=== PATIENT | female | born 1985 | race Caucasian/White ===

== ENCOUNTER 2018-01-20 12:44 | Emergency (ER) | payer SELFPAY ==
[~2018-01-20] VITALS: Ht 160 cm; Wt 44.2 kg
[2018-01-20 12:47] VITALS: TEMP 36.3; Ht 160 cm; Wt 44.2 kg
--- NOTE | 2018-01-20 13:12 | EMERGENCY ROOM VISIT NOTE ---
History First contact with patient: 12:50 Chief Complaint: ED VAG BLEEDING Stated Complaint: 8 WKS - CRAMPING & BLEEDING History of Present Illness The patient is a 32 year old female who presents to the Emergency Room with complaints of vaginal bleeding in early . Patient will be 8 weeks in 2 days. She is G1P 0. She started with light brown spotting 2 days ago. She noticed some heavy clots in the toilet this morning when she urinated. She is having fairly significant lower abdominal cramping. She denies any other symptoms such as fever, vomiting or flank pain. The patient has not yet seen her brand leader. She is supposed to see them early next week for an ultrasound. She called them today. They directed her to ER for further care Review of Systems 10 system review performed and negative unless noted in HPI or below Past Medical/Surgical History Anxiety Panic disorder Social History Smoking Status: Current Every Day Smoker Current/Historical Medications Scheduled Escitalopram Oxalate (Lexapro), 20 MG PO DAILY Multivit/Min/Iron/Fol Ac/Pren ( Vitamin), 1 TAB PO DAILY Scheduled PRN Clonazepam (Klonopin), 0.5 MG PO BID PRN for Anxiety Physical Exam Vital Signs Date Time Temp Pulse Resp B/P (MAP) Pulse Ox O2 Delivery O2 Flow Rate FiO2 01/20/18 16:36 78 18 98/100 99 Room Air 01/20/18 14:24 80 18 100/52 98 Room Air 01/20/18 12:47 36.3 92 18 122/82 99 Room Air Physical Exam VITALS: Vitals are noted on the nurse's note and reviewed by myself. Vital signs stable. GENERAL: 32-year-old female, anxious in appearance,, SKIN: The skin was without rashes, erythema, edema, or bruising. HEAD: Normocephalic atraumatic. NECK: Supple without nuchal rigidity. No lymphadenopathy. Cervical spine is nontender. No JVD. HEART: Regular rate and rhythm without murmurs gallops or rubs. LUNGS: Clear to auscultation bilaterally without wheezes, rales or rhonchi. No accessory muscle use. ABDOMEN: Positive bowel sounds x 4.Soft, nontender, without organomegaly. No guarding or rebound tenderness. MUSCULOSKELETAL: No muscle atrophy, erythema, or edema noted. Strength 5/5 throughout. NEURO: Patient was alert and oriented to person place and time. Normal sensation to touch. No focal neurological deficits. Medical Decision & Procedures ER Provider Diagnostic Interpretation: Pelvic ultrasound IMPRESSION: 1. Moderate endometrial thickening at 1.4 cm. 2. No evidence for an intrauterine gestational sac. 3. 1.5 cm left ovarian corpus luteum cyst. The above report was generated using voice recognition software. It may contain grammatical, syntax or spelling errors. Electronically signed by: Da Epps M.D. 01/20/2018 2:10 PM Dictated Date/Time: 01/20/2018 2:08 PM The status of this report is Signed. Draft = Not yet reviewed or approved by Radiologist. Signed = Reviewed and approved by Radiologist. Laboratory Results 01/20/18 13:18 Red Blood Count 3.48, Mean Corpuscular Volume 95.7, Mean Corpuscular Hemoglobin 33.9, Mean Corpuscular Hemoglobin Concent 35.4, Mean Platelet Volume 9.6, Neutrophils (%) (Auto) 66.6, Lymphocytes (%) (Auto) 24.5, Monocytes (%) (Auto) 7.1, Eosinophils (%) (Auto) 1.3, Basophils (%) (Auto) 0.4, Neutrophils # (Auto) 5.29, Lymphocytes # (Auto) 1.94, Monocytes # (Auto) 0.56, Eosinophils # (Auto) 0.10, Basophils # (Auto) 0.03 01/20/18 13:18 Test 01/20/18 13:18 01/20/18 13:21 White Blood Count 7.93 K/uL (4.8-10.8) Red Blood Count 3.48 M/uL (4.2-5.4) Hemoglobin 11.8 g/dL (12.0-16.0) Hematocrit 33.3 % (37-47) Mean Corpuscular Volume 95.7 fL (80-100) Mean Corpuscular Hemoglobin 33.9 pg (25-34) Mean Corpuscular Hemoglobin Concent 35.4 g/dl (32-36) Platelet Count 223 K/uL (130-400) Mean Platelet Volume 9.6 fL (7.4-10.4) Neutrophils (%) (Auto) 66.6 % Lymphocytes (%) (Auto) 24.5 % Monocytes (%) (Auto) 7.1 % Eosinophils (%) (Auto) 1.3 % Basophils (%) (Auto) 0.4 % Neutrophils # (Auto) 5.29 K/uL (1.4-6.5) Lymphocytes # (Auto) 1.94 K/uL (1.2-3.4) Monocytes # (Auto) 0.56 K/uL (0.11-0.59) Eosinophils # (Auto) 0.10 K/uL (0-0.5) Basophils # (Auto) 0.03 K/uL (0-0.2) RDW Standard Deviation 46.5 fL (36.4-46.3) RDW Coefficient of Variation 13.3 % (11.5-14.5) Immature Granulocyte % (Auto) 0.1 % Immature Granulocyte # (Auto) 0.01 K/uL (0.00-0.02) Anion Gap 6.0 mmol/L (3-11) Est Creatinine Clear Calc Drug Dose 88.3 ml/min Estimated GFR () 138.1 Estimated GFR (Non- 119.1 BUN/Creatinine Ratio 12.5 (10-20) Calcium Level 9.5 mg/dl (8.5-10.1) Total Bilirubin 0.4 mg/dl (0.2-1) Aspartate Amino Transf (AST/SGOT) 12 U/L (15-37) Alanine Aminotransferase (ALT/SGPT) 16 U/L (12-78) Alkaline Phosphatase 53 U/L (45-117) Total Protein 7.0 gm/dl (6.4-8.2) Albumin 3.8 gm/dl (3.4-5.0) Globulin 3.2 gm/dl (2.5-4.0) Albumin/Globulin Ratio 1.2 (0.9-2) Human Chorionic Gonadotropin, Quant 1424 mIU/mL Urine Color ORANGE Urine Appearance TURBID (CLEAR) Urine pH 7.0 (4.5-7.5) Urine Specific [place] 1.023 (1.000-1.030) Urine Protein 3+ (NEG) Urine Glucose (UA) NEG (NEG) Urine Ketones TRACE (NEG) Urine Occult Blood 3+ (NEG) Urine Nitrite NEG (NEG) Urine Bilirubin NEG (NEG) Urine Urobilinogen NEG (NEG) Urine Leukocyte Esterase SMALL (NEG) Urine WBC (Auto) 10-30 /hpf (0-5) Urine RBC (Auto) >30 /hpf (0-4) Urine Hyaline Casts (Auto) 5-10 /lpf (0-5) Urine Epithelial Cells (Auto) >30 /lpf (0-5) Urine Bacteria (Auto) 1+ (NEG) Urine Renal Epithelial Cells 5-10 /lpf (0-5) Urine Pathogenic Casts 0-3 GRANULAR CASTS /lpf (0) Medications Administered Medications (Trade) Dose Ordered Sig/Raimundo Route Start Time Stop Time Status Last Admin Dose Admin Ketorolac Tromethamine (Toradol Inj) 30 mg NOW STAT IV 01/20/18 15:27 01/20/18 15:28 DC 01/20/18 15:51 30 MG ED Course Patient was seen and examined Vital signs including blood pressure were reviewed medications list was verified with patient Labs were obtained, and a saline lock was established Imaging was performed and reviewed Findings were discussed with my supervising physician. I then reassess the patient. We discussed the results. She was tearful, but understanding. I spoke with Dr. Veras from [facility]. The patient was requesting pain medications. She was given 1 dose of Toradol 30 mg IV. Upon reassessment, she was more comfortable. The patient was given 1 dose of RhoGam I reviewed discharge instructions the patient. They voiced understanding and had no further questions. Medical Decision Differential diagnosis: Threatened miscarriage, incomplete , complete , subchorionic hemorrhage, ectopic This patient is a 32-year-old female, 8 weeks the presents with vaginal bleeding and cramping. On exam, her abdomen was benign. Patient's hCG level is 1400, which is low. An ultrasound was performed. No gestational intrauterine sac was noted. This was discussed at length with patient. Patient is also O--she was given RhoGam. Case was discussed with OB. She will follow-up with them on Tuesday as scheduled. The patient was given ectopic precautions. She will return with any worsening pain or severe bleeding This chart was completed in part utilizing [employer] Voice Recognition software. Attempts were made to minimize the grammatical errors, random word insertions, pronoun errors and incomplete sentences. Any formal questions or concerns about the content, text or information contained within the body of this dictation should be directly addressed to the provider for clarification. Consults Consulting Physician: Dr. Veras Impression Primary Impression: Vaginal bleeding affecting early Departure Information Dispostion Home / Self-Care Referrals No Doctor, Assigned (PCP) Aaron Veras M.D. Patient Instructions ED Miscarriage Poss, [facility] Additional Instructions You have been seen in the emergency department for vaginal bleeding during . An ultrasound was performed. There was no fetus seen in the uterus. Please do not use tampons. Nothing in the vagina. Use pads for vaginal bleeding. No sexual intercourse. Please keep your appointment with OB as scheduled. It is very important for you to have repeat blood work in 72 hours. You may take Tylenol 650 mg or ibuprofen 600 mg every 6 hours as needed for pain Please do not hesitate to return to the emergency department with any new, worsening or concerning symptoms; especially, worsening abdominal pain, fever, lightheadedness or heavy bleeding-greater than 2 pads per hour
[2018-01-20 13:29] LABS: BASO % 0.4 %; BASO ABS # 0.03 K/uL (0-0.2); EOS % 1.3 %; HEMATOCRIT 33.3 % (37-47); HEMOGLOBIN 11.8 g/dL (12.0-16.0); IG# 0.01 K/uL (0.00-0.02); LYMPH % 24.5 %; LYMPH ABS # 1.94 K/uL (1.2-3.4); MEAN CELL VOLUME 95.7 fL (80-100); MEAN CORPUSCULAR HEMOGLOBIN 33.9 pg (25-34); MEAN CORPUSCULAR HGB CONC 35.4 g/dl (32-36); MEAN PLATELET VOLUME 9.6 fL (7.4-10.4); MONO % 7.1 %; MONO ABS # 0.56 K/uL (0.11-0.59); NEUT % 66.6 %; NEUT ABS # 5.29 K/uL (1.4-6.5); PLATELET COUNT 223 K/uL (130-400); RED CELL DISTRIBUTION WIDTH CV 13.3 % (11.5-14.5); RED CELL DISTRIBUTION WIDTH SD 46.5 fL (36.4-46.3); WHITE BLOOD COUNT 7.93 K/uL (4.8-10.8)
[2018-01-20 13:46] LABS: ALBUMIN 3.8 gm/dl (3.4-5.0); CALCIUM 9.5 mg/dl (8.5-10.1); CREATININE 0.65 mg/dl (0.60-1.20); POTASSIUM 3.5 mmol/L (3.5-5.1)
--- NOTE | 2018-01-20 14:12 | DIAGNOSTIC IMAGING REPORT ---
<14 WKS SINGLE CLINICAL HISTORY: bleeding 8 weeks TECHNIQUE: Transabdominal as well as transvaginal ultrasound COMPARISON STUDY: None FINDINGS: Uterus is midline. Maximum linear dimension 7.8 cm. Moderately thickened endometrium at 1.4 cm. No evidence for an intrauterine gestational sac. Left ovary measures 3.1 cm at maximum. Demonstrate normal vascular flow. There is a 1.5 cm corpus luteum cyst. Right ovary measures 2.5 cm maximum. Vascular flow is confirmed. IMPRESSION: 1. Moderate endometrial thickening at 1.4 cm. 2. No evidence for an intrauterine gestational sac. 3. 1.5 cm left ovarian corpus luteum cyst. The above report was generated using voice recognition software. It may contain grammatical, syntax or spelling errors. Electronically signed by: Da Epps M.D. 01/20/2018 2:10 PM Dictated Date/Time: 01/20/2018 2:08 PM
[2018-01-20] MEDS ORDERED: PRENTAB26 PO (14:33)
[2018-01-20] MEDS ORDERED: ESCI1TAB10 PO (14:33)
[2018-01-20] MEDS ORDERED: CLON0.5T3 PO (14:33)
[2018-01-20] MEDS ORDERED: KETOROLAC TROMETHAMINE 30 MG/ML VIAL IV STA (15:27)
[2018-01-20 16:36] VITALS: BP 98/100; PULSE 78; O2SAT 99
== END 2018-01-20 16:36 | disposition home or self-care (01) ==
LOC: C.EDB 12:46 → C.EDC 16:36
DX: O20.9 Hemorrhage in early pregnancy, unspecified (principal); O99.341 Other mental disorders complicating pregnancy, first trimester; O99.331 Smoking (tobacco) complicating pregnancy, first trimester; Z3A.08 8 weeks gestation of pregnancy; F41.0 Panic disorder [episodic paroxysmal anxiety]; F17.200 Nicotine dependence, unspecified, uncomplicated

== ENCOUNTER → 2018-01-30 | Outpatient (CLI) | payer OTHER ==
[~2018-01-30] MED LIST: CLON0.5T3 PO; ESCI1TAB10 PO; PRENTAB26 PO
== END | disposition home or self-care (01) ==
LOC: C.LAB1850 11:42
PROVIDERS: ATTEND Obstetrics & Gynecology
DX: O03.9 Complete or unspecified spontaneous abortion without complication (principal)

== ENCOUNTER → 2018-01-30 | Outpatient (CLI) | payer OTHER | END | disposition home or self-care (01) | LOC: C.PAPS 14:40 | PROVIDERS: ATTEND Obstetrics & Gynecology | DX: Z12.4 Encounter for screening for malignant neoplasm of cervix (principal) ==

== ENCOUNTER 2021-07-04 02:48 | Inpatient (IN) ==
[2021-07-04] MEDS ORDERED: OXYTOCIN 30 UNITS/500 ML BAG IV PRN ×3 (03:09→11:12)
[2021-07-04] MEDS: LACTATED RINGER'S 1,000 ML IV PRN ×2 (03:20→07:32)
[2021-07-04 03:27] LABS: Hematocrit (blood only) 33.4 % (37-47); Hemoglobin 11.4 g/dL (12.0-16.0); Mean Corpuscular Hemoglobin 34.2 pg (25-34); Mean Corpuscular Hgb Conc 34.1 g/dL (32-36); Mean Corpuscular Volume 100.3 fL (80-100); Mean Platelet Volume 11.3 fL (7.4-10.4); Platelet Count 214 K/uL (130-400); RDW Coefficient of Variation 13.6 % (11.5-14.5); RDW Standard Deviation 49.4 fL (36.4-46.3); Red Blood Count 3.33 M/uL (4.2-5.4); White Blood Count 14.72 K/uL (4.8-10.8)
[2021-07-04] MEDS ORDERED: SODIUM CHLORIDE 0.9% INJ 10 ML VIAL ONE (03:30)
[2021-07-04] MEDS ORDERED: ePHEDrine sulfate 50 MG/ML AMP ONE (03:30)
[2021-07-04] MEDS ORDERED: BUPIVACAINE 0.25% 30 ML VIAL ONE (03:31)
[2021-07-04] MEDS ORDERED: fentaNYL citrate 100 MCG/2 ML VIAL ONE (03:31)
[2021-07-04] MEDS ORDERED: fentaNYL 2MCG/ML ROPIVACAINE 1.25MG/ML 100 ML BAG EPI ONE (03:31)
--- NOTE | 2021-07-04 04:08 | Anesthesiology Consultation ---
Date of Service July 04, 2021 Assessment & Plan (1) Encounter for pre-operative examination: Chart Review Chart Review: Acceptable Risk for Surgery and Patient NOT seen in Pre Admission Testing Consults Requested none ASA ASA2 Proposed Anesthesia Anesthesia Type: Labor Epidural Risk / Benefits Reviewed With: PT / POA / Parent / Guardian, Accepts Plan and Informed Consent Obtained History Height/Weight Height: 5 ft 3 in Weight: 54.885 kg Allergies Allergy/AdvReac Type Severity Reaction Status Date / Time No Known Allergies Allergy Verified 07/04/21 03:58 Medications Home Medications Medication Instructions Recorded Confirmed Last Taken clonazepam 0.5 mg tablet (Klonopin) 0.5 mg PO BID PRN 11/20/20 07/04/21 07/03/21 19:00 escitalopram oxalate 20 mg tablet 20 mg PO DAILY 11/20/20 07/04/21 07/03/21 19:00 (Lexapro) prenat.vits,damion,ofy-ondw-pxffp 1 tab PO DAILY 11/20/20 07/04/21 07/02/21 20:00 docusate sodium 100 mg capsule 100 mg PO DAILY 07/03/21 07/04/21 07/02/21 20:00 (Colace) Active Medications Generic Name Dose Route Start Last Admin Trade Name Freq PRN Reason Stop Dose Admin Lactated Ringer's 1,000 mls @ 125 mls/hr 07/04/21 03:09 07/04/21 03:58 Lr IV 07/06/21 03:08 125 mls/hr .Q8H PRN Infusion L&D Protocol Protocol NPO Date Last Intake of Fluids: 07/04/21 Time Last Intake of Fluids: 04:04 Date Last Intake of Solids: 07/03/21 Time Last Intake of Solids: 18:00 Past Medical History Medical History Anxiety 2012 Panic attack 2012 Tailbone injury 2004, 2006 Exercise / Class Metabolic Activity II 4-5 Yardwork/Stairs/Walk up hill Past Family History Family History Father Dyslipidemia Thyroid cancer Grandmother (Maternal) Cervix cancer Other Breast cancer Diabetes Ovarian cancer Twin Denies family history of Colorectal cancer Past Surgical History Surgical History H/O oral surgery History of esophagogastroduodenoscopy (EGD) Past Anesthesia History No Hx of Anesthesia Complications History of PONV No Hx of PONV Social History Smoking Status: Current every day smoker tobacco type: cigarettes Smoking cigarettes per day: 10 Hx Alcohol Use: No Hx Substance Use: No substance use type: does not use Review of Systems Positive for n/v Patient denies history of abnormal bleeding or bleeding disorder. Patient denies active use of anticoagulants other than low dose aspirin. Patient denies numbness, tingling or weakness in lower extremities most of the time - occasional tingling in legs with stting Physical Exam Vital Signs Last Vital Signs Temp 36.8 C 07/04/21 02:59 Pulse 90 07/04/21 02:59 Resp 18 07/04/21 02:59 BP 113/67 07/04/21 02:59 Testing Laboratory Results 07/04/21 03:18
[2021-07-04] MEDS ORDERED: ONDANSETRON INJ 2 MG/ML 2 ML VIAL IV PRN (04:16)
[2021-07-04] MEDS ORDERED: ePHEDrine sulfate 50 MG/ML AMP IV PRN (04:16)
[2021-07-04] MEDS ORDERED: fentaNYL 2MCG/ML ROPIVACAINE 1.25MG/ML 100 ML BAG EPI PRN (04:16)
[2021-07-04] MEDS ORDERED: NALBUPHINE HCL INJ 10 MG/ML AMP IV PRN (04:16)
[2021-07-04] MEDS ORDERED: NALOXONE HCL 1 MG in SODIUM CHLORIDE 0.9% 1000ML 1,000 ML IV PRN (04:16)
[2021-07-04] MEDS ORDERED: NALOXONE HCL 0.4 MG/1 ML VIAL/CARP IV PRN (04:16)
[2021-07-04] MEDS ORDERED: diphenhydrAMINE 50 MG/ML VIAL IV PRN (04:16)
--- NOTE | 2021-07-04 05:26 | History & Physical Report ---
Date of Service July 04, 2021 Assessment & Plan (1) Supervision of normal intrauterine in primigravida: Plan: Admit to L&D, EFM/toco, labs. COVID screen per policy. OK for epidural. Admission and Anticipated Discharge Date Admission Date: July 04, 2021 History of Present Illness Chief Complaint: spont labor Primary Care Provider: Angel Yan, 36yo @ 38 5/7, contractions for the past day. Had been seen at L&D, cervix was unchanged, and discharged home. She then returned with increase in pain. complicated by anxiety, Rh negative. Allergies Allergy/AdvReac Type Severity Reaction Status Date / Time No Known Allergies Allergy Verified 07/04/21 03:58 Home Medications Medication Instructions Recorded Confirmed Type clonazepam 0.5 mg tablet (Klonopin) 0.5 mg PO BID PRN 11/20/20 07/04/21 History escitalopram oxalate 20 mg tablet 20 mg PO DAILY 11/20/20 07/04/21 History (Lexapro) prenat.vits,damion,wjk-uefb-yxwnz 1 tab PO DAILY 11/20/20 07/04/21 History docusate sodium 100 mg capsule 100 mg PO DAILY 07/03/21 07/04/21 History (Colace) Patient History Medical History Anxiety 2012 Panic attack 2012 Tailbone injury 2004, 2005 Surgical History H/O oral surgery History of esophagogastroduodenoscopy (EGD) Family History Father Dyslipidemia Thyroid cancer Grandmother (Maternal) Cervix cancer Other Breast cancer Diabetes Ovarian cancer Twin Denies family history of Colorectal cancer Social History (Updated 11/20/20 @ 13:47 by Vida Lundberg) Smoking Status: Current every day smoker Tobacco Type: Cigarettes packs per day: 0.5; Cigarettes Per Day: 10; Second Hand Exposure: Yes; Hx Alcohol Use: No Hx Substance Use: No Preferred Language: Telugu Communication Ability: Effective Market Superintendent Required: No Beliefs That Will Affect Care: None marital status: marital status details: Harjit (33) [phone] Current Living Situation: Spouse and Family Current Living Situation Comment: patient lives with her parents and current occupational status: unemployed Other Information That Helps Us Care for You: No Feels Safe at Home: Yes Safety Concerns: Feels Safe At This Time Assistive Devices: Glasses Review of Systems All systems reviewed & are unremarkable except as noted in HPI & below Physical Exam Physical Exam: FHT Cat 1 [place] Q 2-4 SVE 6/100/0 per RN Constitutional: WD/WN, vitals as above Respiratory: normal respiratory effort, lungs clear to auscultation no respiratory distress Cardiovascular: Rate/Rhythm: regular rate and regular rhythm Gastrointestinal (Abdomen): Inspection/Auscultation: abdomen normal to inspection Percussion/Palpation: abdomen soft; abdomen nontender Gravid. No s/s chorio or abruption. Skin: no rashes, warm and dry Psychiatric: A+Ox3, euthymic affect Results & Data ([facility]) Vital Signs (Past 12 Hours) Vital Signs Temp Pulse Resp BP Pulse Ox 07/04/21 05:23 87 99 07/04/21 05:21 71 97/51 L 07/04/21 05:18 71 99 07/04/21 05:16 80 99/55 L 07/04/21 05:13 70 99 07/04/21 05:11 75 98/53 L 07/04/21 05:08 67 99 07/04/21 05:07 67 98/51 L 07/04/21 05:03 88 97/56 L 100 07/04/21 05:00 16 07/04/21 04:58 86 99 07/04/21 04:56 79 112/61 07/04/21 04:54 88 111/56 L 07/04/21 04:53 90 98 07/04/21 04:52 86 111/58 L 07/04/21 04:50 84 124/65 07/04/21 04:48 81 113/60 96 07/04/21 04:46 94 H 109/59 L 07/04/21 04:44 86 113/60 07/04/21 04:43 91 H 98 07/04/21 04:42 87 112/56 L 07/04/21 04:38 91 H 118/60 99 07/04/21 04:33 87 100 07/04/21 04:28 87 99 07/04/21 04:23 91 H 100 07/04/21 04:18 88 97 07/04/21 04:04 36.8 C 90 18 113/67 07/04/21 02:59 36.8 C 90 18 Coding Level of Care Code None Diagnoses Supervision of normal intrauterine in primigravida Z34.00
--- NOTE | 2021-07-04 08:01 | Labor Progress Brief Note ---
Date of Service July 04, 2021 Subjective Comfortable with epidural. FHT Cat 1 [place] - ctx have spaced, now Q 4-6 SVE 10/100/+1 AROM mec-stained fluid. Patient agreeable to pitocin to obtain better ctx pattern after epidural. Assessment & Plan Admission and Anticipated Discharge Date Admission Date: July 04, 2021 Results & Data ([facility]) Vital Signs (Past 12 Hours) Vital Signs Temp Pulse Resp BP Pulse Ox 07/04/21 07:58 88 100 07/04/21 07:54 66 109/55 L 07/04/21 07:53 78 100 07/04/21 07:48 75 100 07/04/21 07:43 75 99 07/04/21 07:39 58 L 104/57 L 07/04/21 07:38 63 100 07/04/21 07:33 71 100 07/04/21 07:28 70 97 07/04/21 07:23 78 93/52 L 99 07/04/21 07:18 77 100 07/04/21 07:13 73 100 07/04/21 07:08 37.0 C 66 20 99/58 L 100 07/04/21 07:03 74 98 07/04/21 07:00 18 07/04/21 06:58 85 100 07/04/21 06:53 76 95/56 L 100 07/04/21 06:48 75 100 07/04/21 06:43 71 98 07/04/21 06:38 74 90/54 L 98 07/04/21 06:33 72 98 07/04/21 06:30 16 07/04/21 06:28 71 98 07/04/21 06:24 75 100/60 07/04/21 06:23 80 98 07/04/21 06:18 76 97 07/04/21 06:13 78 97 07/04/21 06:09 66 91/53 L 07/04/21 06:08 72 98 07/04/21 06:03 66 97 07/04/21 06:00 16 07/04/21 05:58 75 97 07/04/21 05:53 74 16 84/50 L 98 07/04/21 05:48 68 98 07/04/21 05:43 74 98 07/04/21 05:41 67 18 93/50 L 07/04/21 05:38 71 99 07/04/21 05:33 76 100 07/04/21 05:28 75 99 07/04/21 05:23 87 99 07/04/21 05:21 71 16 97/51 L 07/04/21 05:18 71 99 07/04/21 05:16 80 16 99/55 L 07/04/21 05:13 70 99 07/04/21 05:11 75 18 98/53 L 07/04/21 05:08 67 99 07/04/21 05:07 67 18 98/51 L 07/04/21 05:03 88 97/56 L 100 07/04/21 05:00 16 07/04/21 04:58 86 99 07/04/21 04:56 79 16 112/61 07/04/21 04:54 88 16 111/56 L 07/04/21 04:53 90 98 07/04/21 04:52 86 16 111/58 L 07/04/21 04:50 84 16 124/65 07/04/21 04:48 81 16 113/60 96 07/04/21 04:46 94 H 18 109/59 L 07/04/21 04:44 86 18 113/60 07/04/21 04:43 91 H 98 07/04/21 04:42 87 18 112/56 L 07/04/21 04:38 91 H 118/60 99 07/04/21 04:33 87 100 07/04/21 04:28 87 99 07/04/21 04:23 91 H 100 07/04/21 04:18 88 97 07/04/21 04:04 36.8 C 90 18 113/67 07/04/21 02:59 36.8 C 90 18 113/67 Coding Level of Care Code None
[2021-07-04] MEDS ORDERED: DIPHTHERIA/TETANUS/PERTUSSIS 0.5 ML SYR/VIAL IM ONE (11:12)
[2021-07-04] MEDS ORDERED: bisacodyL 10 MG SUPP PR PRN (11:12)
[2021-07-04] MEDS ORDERED: BENZOCAINE 20% AER SPR 82.5 GM CAN EXT PRN (11:12)
[2021-07-04] MEDS ORDERED: ACETAMINOPHEN 325 MG TAB PO PRN (11:12)
[2021-07-04] MEDS ORDERED: HYDROCORTISONE ACETATE 25 MG SUPP PR PRN (11:12)
[2021-07-04] MEDS ORDERED: SUPERCREAM 0.870% 15 GM JAR EXT PRN (11:12)
--- NOTE | 2021-07-04 12:49 | Anesthesiology Progress Note ---
Date of Service July 04, 2021 Anesthesia Post Procedure Vital Signs Vital Signs: Temp Pulse Resp BP Pulse Ox 07/04/21 12:38 90 103/56 L 07/04/21 12:23 83 100/54 L 07/04/21 12:08 76 97/56 L 07/04/21 11:54 71 113/55 L 07/04/21 11:38 64 101/56 L 07/04/21 11:25 70 105/55 L 07/04/21 11:09 71 112/54 L 07/04/21 10:54 64 117/56 L 99 07/04/21 10:49 97 H 100 07/04/21 10:44 84 100 07/04/21 10:40 80 105/72 07/04/21 10:39 85 98 07/04/21 10:34 67 100 07/04/21 10:29 66 99 07/04/21 10:24 65 99/52 L 99 07/04/21 10:19 76 100 07/04/21 10:14 68 100 07/04/21 10:09 65 100/50 L 99 07/04/21 10:03 63 100 07/04/21 10:00 18 07/04/21 09:58 65 100 07/04/21 09:54 65 106/56 L 07/04/21 09:53 65 98 07/04/21 09:48 67 99 07/04/21 09:43 69 98 07/04/21 09:39 66 100/54 L 07/04/21 09:38 66 98 07/04/21 09:33 71 98 07/04/21 09:30 20 07/04/21 09:28 69 99 07/04/21 09:24 77 94/53 L 07/04/21 09:23 81 98 07/04/21 09:18 80 97 07/04/21 09:13 86 98 07/04/21 09:08 37.0 C 97 H 92/55 L 99 07/04/21 09:03 77 99 07/04/21 08:59 18 07/04/21 08:58 72 99 07/04/21 08:55 87 101/50 L 07/04/21 08:53 65 99 07/04/21 08:48 67 98 07/04/21 08:43 67 100 07/04/21 08:38 68 111/58 L 100 07/04/21 08:33 65 100 07/04/21 08:30 18 07/04/21 08:28 65 99 07/04/21 08:24 64 109/54 L 07/04/21 08:23 67 100 07/04/21 08:18 64 100 07/04/21 08:13 69 100 07/04/21 08:09 66 105/55 L 07/04/21 08:08 63 100 07/04/21 08:03 62 100 07/04/21 08:00 20 07/04/21 07:58 88 100 07/04/21 07:54 66 109/55 L 07/04/21 07:53 78 100 07/04/21 07:48 75 100 07/04/21 07:43 75 99 07/04/21 07:39 58 L 104/57 L 07/04/21 07:38 63 100 07/04/21 07:33 71 100 07/04/21 07:30 20 07/04/21 07:28 70 97 07/04/21 07:23 78 93/52 L 99 07/04/21 07:18 77 100 07/04/21 07:13 73 100 07/04/21 07:08 37.0 C 66 20 99/58 L 100 07/04/21 07:03 74 98 07/04/21 07:00 18 07/04/21 06:58 85 100 07/04/21 06:53 76 95/56 L 100 07/04/21 06:48 75 100 07/04/21 06:43 71 98 07/04/21 06:38 74 90/54 L 98 07/04/21 06:33 72 98 07/04/21 06:30 16 07/04/21 06:28 71 98 07/04/21 06:24 75 100/60 07/04/21 06:23 80 98 07/04/21 06:18 76 97 07/04/21 06:13 78 97 07/04/21 06:09 66 91/53 L 07/04/21 06:08 72 98 07/04/21 06:03 66 97 07/04/21 06:00 16 07/04/21 05:58 75 97 07/04/21 05:53 74 16 84/50 L 98 07/04/21 05:48 68 98 07/04/21 05:43 74 98 07/04/21 05:41 67 18 93/50 L 07/04/21 05:38 71 99 07/04/21 05:33 76 100 07/04/21 05:28 75 99 07/04/21 05:23 87 99 07/04/21 05:21 71 16 97/51 L 07/04/21 05:18 71 99 07/04/21 05:16 80 16 99/55 L 07/04/21 05:13 70 99 07/04/21 05:11 75 18 98/53 L 07/04/21 05:08 67 99 07/04/21 05:07 67 18 98/51 L 07/04/21 05:03 88 97/56 L 100 07/04/21 05:00 16 07/04/21 04:58 86 99 07/04/21 04:56 79 16 112/61 07/04/21 04:54 88 16 111/56 L 07/04/21 04:53 90 98 07/04/21 04:52 86 16 111/58 L 07/04/21 04:50 84 16 124/65 07/04/21 04:48 81 16 113/60 96 07/04/21 04:46 94 H 18 109/59 L 07/04/21 04:44 86 18 113/60 07/04/21 04:43 91 H 98 07/04/21 04:42 87 18 112/56 L 07/04/21 04:38 91 H 118/60 99 07/04/21 04:33 87 100 07/04/21 04:28 87 99 07/04/21 04:23 91 H 100 07/04/21 04:18 88 97 07/04/21 04:04 36.8 C 90 18 113/67 07/04/21 02:59 36.8 C 90 18 113/67 Pain Intensity Abdomen: Pain Intensity: 0 Transfer of Care Handoff Completed per policy Notes Mental Status: alert / awake / arousable and participated in evaluation Patient Amnestic to Procedure: Yes Nausea / Vomiting: adequately controlled Pain: adequately controlled Airway Patency, RR, SpO2: stable & adequate BP & HR: stable & adequate Hydration State: stable & adequate Anesthetic Complications: no major complications apparent and Pt Satisfied with anesthetic care
[2021-07-04] MEDS ORDERED: Nursing to Pharmacy Communication SCH ×2 (16:30→18:00)
[2021-07-04] MEDS: clonazePAM 0.5 MG TAB PO SCH (17:00)
[2021-07-04] MEDS ORDERED: ESCITALOPRAM OXALATE 20 MG TAB PO SCH ×2 (19:00→21:00)
[2021-07-04] MEDS: DOCUSATE SODIUM 100 MG CAP PO SCH (20:41)
[2021-07-04] MEDS ORDERED: clonazePAM 0.5 MG TAB PO SCH (21:00)
[2021-07-04] MEDS: IBUPROFEN 600 MG TAB PO PRN (23:33)
[2021-07-05] MEDS ORDERED: PRENATAL VITAMIN 1 TAB PO SCH (08:00)
[2021-07-05] MEDS ORDERED: FERROUS SULFATE 325 MG TAB PO SCH (08:00)
--- NOTE | 2021-07-05 09:10 | Obstetrical Progress Note ---
Date of Service July 05, 2021 Assessment & Plan (1) Encounter for care and examination after delivery: 36yo Day 1 s/p . Doing well. Stable for discharge Subjective Ambulation: ambulating normally Voiding: no voiding problems Passing Gas:: Yes Diet Tolerance:: regular diet Lochia:: Moderate Feeding Type:: breast feeding Physical Exam Constitutional WD/WN, vitals as above Respiratory normal respiratory effort; no respiratory distress and no labored breathing Gastrointestinal (Abdomen) Inspection/Auscultation: abdomen normal to inspection; abdomen not distended Percussion/Palpation: abdomen soft; abdomen nontender, no guarding and abdomen not rigid Genitourinary OB Exam Abdomen: + fundal height Fundus: + firm and + relation to umbilicus (Below); not tender or not boggy Results & Data ([facility]) Vital Signs (Past 12 Hours) Vital Signs Temp Pulse Resp BP 07/05/21 03:30 36.6 C 85 18 100/56 L 07/04/21 23:15 36.7 C 72 18 107/62
[2021-07-05] MEDS: DOCUSATE SODIUM 100 MG CAP PO SCH (09:13)
[2021-07-05] MEDS: clonazePAM 0.5 MG TAB PO SCH (09:14)
[2021-07-05] MEDS: IBUPROFEN 600 MG TAB PO PRN (09:14)
--- NOTE | 2021-07-05 09:43 | Delivery Summary ---
DATE OF PROCEDURE: 07/04/2021. PROCEDURE: Normal spontaneous vaginal delivery with a small second-degree perineal laceration repair . SURGEON: Cristóbal Ram MD. PREOPERATIVE DIAGNOSES: 1. Single intrauterine at 38 weeks 6 days gestational age. 2. Spontaneous labor. 3. Anxiety. POSTOPERATIVE DIAGNOSES: 1. Single intrauterine at 38 weeks 6 days gestational age. 2. Spontaneous labor. 3. Anxiety. 4. Status post delivery. ESTIMATED BLOOD LOSS: 200 mL. DRAINS: None. FLUIDS: Continuous lactated Ringer. URINE OUTPUT: None. COMPLICATIONS: None. FINDINGS: Viable female weighing 5 pounds 7 ounces with Apgars of 7 and 8 at one and five mi nutes respectively. DETAILS OF PROCEDURE: The patient progressed to 10 cm dilated, 100% effaced, positive 2 station, pus hed over intact perineum with epidural anesthesia, delivered a viable female , weight and s as noted above. Head of the delivered in MANDO position, restituted to left transverse. No nuchal cord was noted. Body and shoulders quickly followed. was noted to be vigorous soon a fter delivery and 1 minute delayed cord clamping was initiated. Cord was then doubly clamped and cut . remained on the maternal abdomen. Cord blood was obtained. Attention was then turned to delivery of placenta, which was delivered intact, 3-vessel cord, gentle cord traction. On inspection of the perineum, vagina, and cervix, there was noted to be a small second-degree, borderline first-d egree laceration, which was repaired with 3-0 Vicryl in continuous running stitch. Needle, sponge, a nd instrument counts were correct at the completion of the case. The mother and were stable in the immediate post-delivery period. Job ID: [id number]
[2021-07-05] MEDS ORDERED: bisacodyL 5 MG TABEC PO SCH (20:00)
== END 2021-07-05 13:40 | disposition home or self-care (01) | DRG 807 ==
LOC: OPB 02:48 → 4S1 02:50 → 4S2 15:21